=== PATIENT | male | born 1980 | race Caucasian/White ===

== ENCOUNTER 2020-10-17 15:57 | Emergency (ER) | payer MEDICAID ==
[~2020-10-17] VITALS: Ht 177.8 cm; Wt 88.0 kg
[2020-10-17] MEDS ORDERED: BACITRACIN ZINC OINT UDPKT TOP ONE (16:45)
[2020-10-17] MEDS ORDERED: LIDOCAINE HCL/PF 1% 10 MG/ML 5ML VIAL IJ ONE (16:45)
[2020-10-17] MEDS ORDERED: IBUPROFEN 600MG TABLET PO ONE (16:45)
[2020-10-17 17:07] VITALS: BP 155/89
== END 2020-10-17 18:05 | disposition home or self-care (01) ==
LOC: ER 15:57
DX: S61.217A Laceration without foreign body of left little finger without damage to nail, initial encounter (principal); W26.8XXA Contact with other sharp object(s), not elsewhere classified, initial encounter; Y93.89 Activity, other specified; Y92.89 Other specified places as the place of occurrence of the external cause; Y99.0 Civilian activity done for income or pay
CPT/HCPCS: 12001; 99282; J3490; Z7610